=== PATIENT | male | born 1985 | race Two or more races ===

== ENCOUNTER 2018-01-13 21:33 | Emergency (ER) | payer OTHER ==
--- NOTE | 2018-01-13 21:41 | PDOC ---
Rapid Medical Evaluation Chief Complaint: Pain Time Seen by Provider: 01/13/18 21:39 Medical Evaluation: Allergies Allergy/AdvReac Type Severity Reaction Status Date / Time No Known Allergies Allergy Verified 04/19/12 23:40 01/13/18 21:39 I have performed a brief in person evaluation of this patient. The patient presents with a CC of: abd pain HPI: Pt is a 32 YO male who states over the past month he has had diffuse abd pain. He has had an appendectomy. He denies vomiting however admits to nausea. PE: Skin: Clear Heart: RRR Lungs: Clear MS: Moves all extremities without difficulty Abd: diffuse tenderness, no guarding. Neuro: Appropriate affect Psych: appropriate affect I have ordered: abd protocol The patient will proceed to the ED for further evaluation. Discharge Disposition - Diagnosis Abdominal pain Qualifiers: Abdominal location: generalized Qualified Code(s): R10.84 - Generalized abdominal pain - Referrals - Patient Instructions - Post Discharge Activity
[2018-01-13 21:42] VITALS: BP 118/86; PULSE 92; TEMP 98.8; BMI 25.0
[2018-01-13 21:59] LABS: EOS % 2.3 % (0-4.5); HEMATOCRIT 50.7 % (35.4-49); LYMPH % 30.6 % (8-40); MCHC 33.5 g/dl (32.0-35.9); MEAN CELL VOLUME 86.6 fl (80-96); MEAN PLT VOLUME 9.6 fl (7.5-11.1); NEUT % 57.1 % (42.8-82.8); PLATELET COUNT 228 K/MM3 (134-434); RBC 5.86 M/mm3 (4.00-5.60); RDW 13.6 % (11.9-15.9); WHITE BLOOD COUNT 8.9 K/mm3 (4.0-10.0)
[2018-01-13 22:22] LABS: ALBUMIN 3.8 g/dl (3.4-5.0); ALK PHOS 86 U/L (45-117); ANION GAP 7 MMOL/L (8-16); BILIRUBIN,TOTAL 0.3 mg/dL (0.2-1); BLOOD UREA NITROGEN 11 mg/dL (7-18); CHLORIDE 104 mmol/L (98-107); CO2 31 mmol/L (21-32); CREATININE 1.1 mg/dL (0.55-1.3); GLUCOSE,RANDOM 90 mg/dL (74-106); LIPASE 113 U/L (73-393); POTASSIUM 4.2 mmol/L (3.5-5.1); SGOT/AST 20 U/L (15-37); SGPT/ALT 50 U/L (13-61); SODIUM 142 mmol/L (136-145); TOT PROT 7.8 g/dl (6.4-8.2)
--- NOTE | 2018-01-13 23:48 | PDOC ---
History of Present Illness - General History Source: Patient Exam Limitations: No Limitations - History of Present Illness Initial Comments: 01/13/18 23:57 The patient is a 32-year-old male, with no significant past medical history, who presents to the ED with 1 month of left-sided abdominal pain. The patient states that he decided to come in tonight because his pain progressively worsened over the past week. He describes the pain as constant, localized to the left anterior rib cage, with no exacerbating or alleviating factors, and associated with occasional diarrhea or constipation. The patient was seen at [facility] 2 weeks ago for similar symptoms and received a abdominal CT scan and urinalysis. He is also complaining of sore throat. The patient denies any fevers or chills. Denies any chest pain or shortness of breath. Denies any frequency, urgency, hesitancy, dysuria, or hematuria. Allergies: NKA Surgical History: Appendectomy. Social History: None reported. <Susannah Philippe - Last Filed: 01/13/18 23:56> <Christine Tirado - Last Filed: 01/14/18 01:38> - General Chief Complaint: Pain Stated Complaint: ABDOMINAL PAIN Time Seen by Provider: 01/13/18 21:39 Past History <Susannah Philippe - Last Filed: 01/13/18 23:56> - Past Medical History COPD: No - Suicide/Smoking/Psychosocial Hx Smoking Status: Yes Smoking History: Former smoker Have you smoked in the past 12 months: No Number of Cigarettes Smoked Daily: 10 Information on smoking cessation initiated: No Hx Alcohol Use: No Drug/Substance Use Hx: No Substance Use Type: None <Christine Tirado - Last Filed: 01/14/18 01:38> - Past Medical History Allergies/Adverse Reactions: Allergies Allergy/AdvReac Type Severity Reaction Status Date / Time No Known Allergies Allergy Verified 01/13/18 21:42 Home Medications: Ambulatory Orders Oxycodone HCl/Acetaminophen [Percocet 5-325 mg Tablet] 1 - 2 tab PO Q6H PRN 19/04 Acetaminophen/Diphenhydramine [Tylenol Pm Ex-Strength Caplet] 1 each PO HS PRN # 30 tablet 01/14/18 Pantoprazole Sodium [Protonix -] 40 mg PO DAILY #30 tablet.ec 01/14/18 Review of Systems - Review of Systems Able to Perform ROS?: Yes Comments:: 01/13/18 23:58 CONSTITUTIONAL: Absent: fever, chills, diaphoresis, generalized weakness, malaise, loss of appetite HEENT: Present: sore throat Absent: rhinorrhea, nasal congestion, throat swelling, difficulty swallowing, mouth swelling, ear pain, eye pain, visual Changes CARDIOVASCULAR: Absent: chest pain, syncope, palpitations, irregular heart rate, lightheadedness , peripheral edema RESPIRATORY: Absent: cough, shortness of breath, dyspnea with exertion, orthopnea, wheezing, stridor, hemoptysis GASTROINTESTINAL: Absent: abdominal distension, nausea, vomiting, diarrhea, constipation, melena, hematochezia GENITOURINARY: Absent: dysuria, frequency, urgency, hesitancy, hematuria, flank pain, genital pain MUSCULOSKELETAL: Present: left anterior ribcage pain. Absent: arthralgia, joint swelling SKIN: Absent: rash, itching, pallor HEMATOLOGIC/IMMUNOLOGIC: Absent: easy bleeding, easy bruising, lymphadenopathy, frequent infections ENDOCRINE: Absent: unexplained weight gain, unexplained weight loss, heat intolerance, cold intolerance NEUROLOGIC: Absent: headache, focal weakness or paresthesias, dizziness, unsteady gait, seizure, mental status changes, bladder or bowel incontinence PSYCHIATRIC: Absent: anxiety, depression, suicidal or homicidal ideation, hallucinations. <Susannah Philippe - Last Filed: 01/13/18 23:56> *Physical Exam - Vital Signs Last Vital Signs Temp Pulse Resp BP Pulse Ox 98.8 F 92 H 18 118/86 99 01/13/18 21:39 01/13/18 21:39 01/13/18 21:39 01/13/18 21:39 01/13/18 21:39 - Physical Exam Comments: 01/13/18 23:59 GENERAL: Well developed, well nourished. Awake and alert. No acute distress. HEENT: (+)Oropharyns is erythematous, but exudates noted. Uvula is midline. Normocephalic, atraumatic. PERRLA, EOMI. No conjunctival pallor. Sclera are non- icteric. Moist mucous membranes. NECK: Supple. Full ROM. No JVD. Carotid pulses 2+ and symmetric, without bruits. No thyromegaly. No lymphadenopathy. CARDIOVASCULAR: Regular rate and rhythm. No murmurs, rubs, or gallops. Distal pulses are 2+ and symmetric. PULMONARY: No evidence of respiratory distress. Lungs clear to auscultation bilaterally. No wheezing, rales or rhonchi. ABDOMINAL: (+)Well healed appendectomy scar. Soft. Non-tender. Non-distended. No rebound or guarding. No organomegaly. Normoactive bowel sounds. MUSCULOSKELETAL (+)Back: there is a 10 cm well healed surgical scar to remove bone. Normal range of motion at all joints. No bony deformities or tenderness. No CVA tenderness. EXTREMITIES: No cyanosis. No clubbing. No edema. No calf tenderness. SKIN: Warm and dry. Normal capillary refill. No rashes. No jaundice. NEUROLOGICAL: Alert, awake, appropriate. Cranial nerves 2-12 intact. No deficits to light touch and temperature in face, upper extremities and lower extremities. No motor deficits in the in face, upper extremities and lower extremities. PSYCHIATRIC: Cooperative. Good eye contact. Appropriate mood and affect. <Susannah Philippe - Last Filed: 01/13/18 23:56> - Vital Signs Last Vital Signs Temp Pulse Resp BP Pulse Ox 98.8 F 92 H 18 118/86 99 01/13/18 21:39 01/13/18 21:39 01/13/18 21:39 01/13/18 21:39 01/13/18 21:39 <Christine Tirado - Last Filed: 01/14/18 01:38> ED Treatment Course - LABORATORY CBC & Chemistry Diagram: 01/13/18 21:54 01/13/18 21:54 - ADDITIONAL ORDERS Additional order review: Laboratory Results 01/13/18 21:54 Sodium 142 Potassium 4.2 Chloride 104 Carbon Dioxide 31 Anion Gap 7 L BUN 11 Creatinine 1.1 Creat Clearance w eGFR > 60 Random Glucose 90 Calcium 9.0 Total Bilirubin 0.3 AST 20 ALT 50 Alkaline Phosphatase 86 Total Protein 7.8 Albumin 3.8 Lipase 113 01/13/18 21:54 RBC 5.86 H MCV 86.6 MCHC 33.5 RDW 13.6 D MPV 9.6 Neutrophils % 57.1 Lymphocytes % 30.6 Monocytes % 9.0 Eosinophils % 2.3 Basophils % 1.0 <Susannah Philippe - Last Filed: 01/13/18 23:56> - LABORATORY CBC & Chemistry Diagram: 01/13/18 21:54 01/13/18 21:54 - ADDITIONAL ORDERS Additional order review: Laboratory Results 01/13/18 21:54 Sodium 142 Potassium 4.2 Chloride 104 Carbon Dioxide 31 Anion Gap 7 L BUN 11 Creatinine 1.1 Creat Clearance w eGFR > 60 Random Glucose 90 Calcium 9.0 Total Bilirubin 0.3 AST 20 ALT 50 Alkaline Phosphatase 86 Total Protein 7.8 Albumin 3.8 Lipase 113 01/13/18 21:54 RBC 5.86 H MCV 86.6 MCHC 33.5 RDW 13.6 D MPV 9.6 Neutrophils % 57.1 Lymphocytes % 30.6 Monocytes % 9.0 Eosinophils % 2.3 Basophils % 1.0 <Christine Tirado - Last Filed: 01/14/18 01:38> Medical Decision Making - Medical Decision Making 01/13/18 23:[address] scan. <Susannah Philippe - Last Filed: 01/13/18 23:56> - Medical Decision Making 01/14/18 01:12 32-year-old male who presents with a hard to quantify left anterior rib cage and left side abdominal pain for the past month. He has not had fever or chills or vomiting. States he does have a chronic problem of intermittent diarrhea followed by constipation. He said he feels he has IBS. He's never been followed by senior oracle adf developer for this. he did go to [facility] emergency department 2 weeks ago for this pain and had a CAT scan and was told it was unremarkable. He does have a primary care doctor in [place] In 2011 at [facility] hosp he did have surgery for removal of abnormal bone growth. 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 He's had several surgeries for removal of these hypertrophic bone in the past. However, the surgeon who did this in 2012 has moved. He does not want a CAT scan done since it was just done. He also states he just had his urine checked and does not want urinalysis done. He has stable vital signs. No fever, he is normotensive and he is 98% on room air. His lab work was unremarkable. I discussed with him that he should follow-up with his primary care doctor and go back to [facility] and request his old medical records He had an appendectomy in the past. His abdominal exam does not show any rebound or guarding He stated that he was frustrated whenhe went to see his CP nettie he has to yet for months before an appointment I will referr him to the medical group at [place] 01/14/18 01:36 FINALLY PT FOUND HIS OLD INFORMATION - HE HAS HEREDITARY MULTIPLE EXOSTOSIS <Christine Tirado - Last Filed: 01/14/18 01:38> *DC/Admit/Observation/Transfer - Attestations Scribe Attestion: 01/14/18 00:01 Documentation prepared by Susannah Philippe, acting as biomedical engineering technician for Christine Tirado MD. <Susannah Philippe - Last Filed: 01/13/18 23:56> <Christine Tirado - Last Filed: 01/14/18 01:38> Diagnosis at time of Disposition: Sore throat Abdominal pain Qualifiers: Abdominal location: generalized Qualified Code(s): R10.84 - Generalized abdominal pain - Discharge Dispostion Disposition: HOME Condition at time of disposition: Stable - Prescriptions Prescriptions: Acetaminophen/Diphenhydramine [Tylenol Pm Ex-Strength Caplet] 1 each PO HS PRN # 30 tablet PRN Reason: Insomnia Pantoprazole Sodium [Protonix -] 40 mg PO DAILY #30 tablet.ec - Referrals Referrals: [facility] [place] [Provider Group] Rico Vincent MD [Staff Physician] - Vika Jacobson MD [Staff Physician] - Evangelista Jacobson MD [Staff Physician] - Jose Concepcion MD [Staff Physician] - - Patient Instructions Printed Discharge Instructions: DI for Abdominal Pain-Adult Additional Instructions: PLEASE CALL OUR [facility] AND MAKE AN APPOINTMENT I HAVE ALSO GIVEN THE NAME OF A SQL DATABASE DEVELOPER FOR FOLLOW UP
[2018-01-14] MEDS ORDERED: IBUPROFEN 600 MG TABLET (FP) PO ONE ×2 (01:24→01:35)
[2018-01-14] MEDS ORDERED: PANTOPRAZOLE 40 MG TABLET (FP) PO ONE (01:32)
[2018-01-14] MEDS ORDERED: PANTOPRAZOLE 40 MG TABLET (FP) ONE (01:34)
== END 2018-01-14 01:43 | disposition home or self-care (01) ==
LOC: JER 21:33
DX: J02.9 Acute pharyngitis, unspecified (principal); R10.84 Generalized abdominal pain
CPT/HCPCS: 36415; 80053; 83690; 85025; 99283-25

== ENCOUNTER 2018-03-18 09:45 | Day surgery (SDC) | payer OTHER ==
[2018-03-11 09:42] VITALS: BMI 25.0
[2018-03-18] MEDS ORDERED: PROPOFOL 20 ML ONE ×2 (10:06)
[2018-03-18 11:06] VITALS: TEMP 97.6
[2018-03-18 11:12] VITALS: BP 111/71; PULSE 76
--- NOTE | 2018-03-20 14:46 | PATH ---
Surgical Pathology Report Patient Name: EDGARDO IRVING [facility]. Rec. #: [id number] /Age/Gender: 1985 (Age: 33) / M Account: [id number] Location: [facility] Taken: 03/18/2018 Received: 03/18/2018 Reported: 03/20/2018 Physicians: Delia Quinn M.D. Specimen(s) Received A: DUODENUM 2ND PORTION B: ANTRUM C: BODY D: GE JUNCTION Clinical History Epigastric pain Postoperative diagnosis: Gastritis Final Diagnosis A. DUODENUM 2ND PORTION, biopsy: Duodenal mucosa with no pathologic findings. B. ANTRUM, biopsy: Severe chronic active gastritis with minimal intestinal metaplasia. Immunostain shows numerous H. pylori organisms. C. BODY, biopsy: Severe chronic active gastritis. Immunostain shows numerous H. pylori organisms. D. GE JUNCTION, biopsy: Columnar (Gastric cardia-type) mucosa showing severe chronic active inflammation. Numerous H. pylori organisms are identified. Negative for intestinal metaplasia. No esophageal (squamous) mucosa is identified. Electronically Signed Gianna Anders M.D. Gross Description A. Received in formalin, labeled "biopsy duodenum 2nd portion" are 2 harris, irregular portions of soft tissue averaging 0.3 cm. in greatest dimension. The specimens are submitted in toto in one cassette. B. Received in formalin, labeled "biopsy antrum" is a harris, irregular portion of soft tissue measuring 0.3 cm. in greatest dimension. The specimen is submitted in toto in one cassette. C. Received in formalin, labeled "biopsy body" is a harris, irregular portion of soft tissue measuring 0.4 cm. in greatest dimension. The specimen is submitted in toto in one cassette. D. Received in formalin, labeled "biopsy GE junction" is a harris, irregular portion of soft tissue measuring 0.3 cm. in greatest dimension. The specimen is submitted in toto in one cassette. 03/18/201803/18/2018
== END 2018-03-18 11:15 | disposition home or self-care (01) ==
LOC: FASU-ENDO 09:45
PROVIDERS: ATTEND Internal Medicine Gastroenterology
PROC: 0DB68ZX Excision of Stomach, Via Natural or Artificial Opening Endoscopic, Diagnostic (ICD-10-PCS; 2018-03-18)
PROC: 0DB38ZX Excision of Lower Esophagus, Via Natural or Artificial Opening Endoscopic, Diagnostic (ICD-10-PCS; 2018-03-18)
PROC: 0DB98ZX Excision of Duodenum, Via Natural or Artificial Opening Endoscopic, Diagnostic (ICD-10-PCS; principal; 2018-03-18 10:30)
DX: K29.60 Other gastritis without bleeding (principal); B96.81 Helicobacter pylori [H. pylori] as the cause of diseases classified elsewhere; R10.9 Unspecified abdominal pain
CPT/HCPCS: 88305-TC; 88342-TC

== ENCOUNTER 2018-08-05 08:52 | Day surgery (SDC) | payer OTHER ==
[2018-08-05] MEDS ORDERED: PROPOFOL 20 ML ONE ×2 (09:17)
[2018-08-05 09:18] VITALS: BMI 25.7
[2018-08-05 11:18] VITALS: TEMP 98.5
[2018-08-05 11:21] VITALS: BP 101/57; PULSE 77
--- NOTE | 2018-08-07 17:46 | PATH ---
Surgical Pathology Report Patient Name: EDGARDO IRVING [facility]. Rec. #: [id number] /Age/Gender: 1985 (Age: 33) / M Account: [id number] Location: [facility] Taken: 08/05/2018 Received: 08/05/2018 Reported: 08/07/2018 Physicians: Delia Quinn M.D. Specimen(s) Received A: BX SECOND PORTION DUODENUM B: BX GASTRIC ANTRUM AND BODY AND FUNDUS C: BX GE JUNCTION Clinical History Dyspepsia, metaplasia Postoperative diagnosis: Irregular Z line, gastritis Final Diagnosis A. SECOND PORTION DUODENUM, BIOPSY: DUODENUM MUCOSA WITH NO SIGNIFICANT PATHOLOGIC CHANGES. NO HISTOLOGIC EVIDENCE OF CELIAC DISEASE. B. GASTRIC ANTRUM, BODY, AND FUNDUS, BIOPSY: GASTRIC MUCOSA WITH ACTIVE CHRONIC GASTRITIS. IMMUNOSTAIN FOR H. PYLORI IS POSITIVE. NEGATIVE FOR INTESTINAL METAPLASIA. C. GE JUNCTION, BIOPSY: GASTROESOPHAGEAL JUNCTIONAL MUCOSA WITH ACTIVE CHRONIC INFLAMMATION AND CHANGES CONSISTENT WITH REFLUX ESOPHAGITIS. Electronically Signed Kindra Villanueva M.D. Gross Description A. Received in formalin, labeled "biopsy second portion of duodenum" is a harris, irregular portion of soft tissue measuring 0.3 cm. in greatest dimension. The specimen is submitted in toto in one cassette. B. Received in formalin, labeled "biopsy gastric antrum, fundus and body" are 5 harris, irregular portions of soft tissue averaging 0.3 cm. in greatest dimension. The specimens are submitted in toto in one cassette. C. Received in formalin, labeled "biopsy GE junction" is a harris, irregular portion of soft tissue measuring 0.3 cm. in greatest dimension. The specimen is submitted in toto in one cassette. 08/06/2018 [facility]08/06/2018
== END 2018-08-05 11:20 | disposition home or self-care (01) ==
LOC: FASU-ENDO 08:52
PROVIDERS: ATTEND Internal Medicine Gastroenterology
PROC: 0DB48ZX Excision of Esophagogastric Junction, Via Natural or Artificial Opening Endoscopic, Diagnostic (ICD-10-PCS; 2018-08-05)
PROC: 0DB98ZX Excision of Duodenum, Via Natural or Artificial Opening Endoscopic, Diagnostic (ICD-10-PCS; principal; 2018-08-05 10:19)
PROC: 0DB68ZX Excision of Stomach, Via Natural or Artificial Opening Endoscopic, Diagnostic (ICD-10-PCS; 2018-08-05 10:19)
DX: K29.50 Unspecified chronic gastritis without bleeding (principal); K20.9 Esophagitis, unspecified; K31.89 Other diseases of stomach and duodenum; B96.81 Helicobacter pylori [H. pylori] as the cause of diseases classified elsewhere; R10.9 Unspecified abdominal pain
CPT/HCPCS: 88305-TC; 88342-TC